=== PATIENT | male | born 1975 | race Caucasian/White ===

== ENCOUNTER → 2023-09-06 | Outpatient (CLI) | payer OTHER, SELFPAY ==
--- NOTE | 2023-09-06 13:00 | RAD_ITS ---
INDICATION: Postlaminectomy syndrome, not elsewhere classified EXAMINATION/TECHNIQUE: X-RAY - XR Spine Lumbar 2 or 3 Views COMPARISON: No relevant prior comparison study available FINDINGS: VERTEBRAE: Preserved vertebral body height. No fracture. Fusion of L4 and L5 vertebrae on the right side with pedicle screws. Laminectomy at the level of L5. Preservation of the normal lumbar lordosis. No substantial scoliosis. DISCS: Disc implants at the levels of L4-L5 and L5-S1. Moderate to severe disc space narrowing of L3-L4 with minimal retrolisthesis of L3 over L4. Endplate spondylosis at multiple levels.. INCLUDED ABDOMEN: Pain management wires with battery pack on the left side of the abdomen. RAD/Lumbar Spine 2 or 3 Views IMPRESSION: Postoperative and degenerative changes of the lumbar spine as described above. Electronically Signed: Rodrigo Lara MD at 8:28 EDT ,
== END | disposition home or self-care (01) ==
PROVIDERS: PCP Internal Medicine; Referring Provider Anesthesiology Pain Medicine; Visit Provider Anesthesiology Pain Medicine
DX: M96.1 Postlaminectomy syndrome, not elsewhere classified (principal)
CPT/HCPCS: 72100